=== PATIENT | male | born 1970 | race Caucasian/White ===

== ENCOUNTER 2020-06-09 08:32 | Outpatient (CLI) | payer BC, SELFPAY | END 2020-06-09 08:33 | disposition home or self-care (01) | LOC: ANHCOVIDVC 08:32 | DX: Z23 Encounter for immunization (principal) | CPT/HCPCS: 0001A; 91300 ==

== ENCOUNTER 2020-06-30 08:29 | Outpatient (CLI) | payer BC, SELFPAY | END 2020-06-30 08:30 | disposition home or self-care (01) | LOC: ANHCOVIDVC 08:29 | DX: Z23 Encounter for immunization (principal) | CPT/HCPCS: 0002A; 91300 ==

== ENCOUNTER 2021-04-12 00:23 | Day surgery (SDC) | payer BC, SELFPAY ==
[2021-03-30 12:57] VITALS: BMI 25.8
[2021-04-12 07:44] VITALS: BP 129/83; PULSE 91; RESP 20; TEMP 36.7; O2SAT 97; BMI 25.4
[2021-04-12] MEDS: LACTATED RINGERS 1,000 ML 150 ML IV CONT (07:51)
--- NOTE | 2021-04-12 08:28 | P.PNAN_ITS ---
Anes - Initial Pre Proc Eval Procedure: Operation Date: 04/12/21 08:30 Proposed Procedures p Colonoscopy With Internal Hemorrhoid Banding - Avila Spangler DO Date/Time: 04/12/21 08:28 Surgeon: Avila Spangler DO Pre Op Diagnosis: grade III internal hemorrhoids, rectal bleeding Patient Data Age: 50 Gender: M Height: 1.8 m Weight: 82.6 kg Last Vital Signs Temp 98.1 F 04/12/21 07:44 Pulse 91 04/12/21 07:44 Resp 20 04/12/21 07:44 BP 129/83 04/12/21 07:44 Pulse Ox 97 04/12/21 07:44 Allergies Allergy/AdvReac Type Severity Reaction Status Date / Time No Known Allergies Allergy Verified 04/12/21 07:43 Home Medications Medication Instructions Recorded Confirmed Type No Home Medications 03/26/21 04/02/21 History Patient hx anesthesia problems: none Family hx anesthesia problems: none Results Review: All pre-operative results and documents have been reviewed as part of the pre-operative evaluation. 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 Informed Consent: The patient's anesthetic plan and its attendant risks and benefits were discussed with the patient/family/POA. Questions were solicited and answers provided to the satisfaction of the patient/family/POA.
--- NOTE | 2021-04-12 08:37 | WPDHPUPDATE1 ---
History and Physical Update Update Date/Time: 04/12/21 08:37 History and Physical has been reviewed, including an updated exam of the patient. There are NO changes in the patient's condition. Risks, benefits, and alternatives have been discussed and questions answered. Patient agrees to proceed with procedure.
[2021-04-12 09:13] VITALS: BP 109/81; PULSE 79; RESP 23; O2SAT 95
--- NOTE | 2021-04-12 09:21 | W.PM.PROC2 ---
Procedure Note - Detailed Date of Procedure 04/12/21 Pre-op Diagnosis grade III internal hemorrhoids, rectal bleeding Post-op Diagnosis same Procedure Performed internal hemorrhoid rubber banding Surgeon Avila Spangler, DO Anesthesia MAC Indications this is a 50-year-old man who presented with rectal bleeding. He was having frequent episodes of blood dripping into the toilet after bowel movements. He has never had a colonoscopy before. Decision was made to proceed with colonoscopy and internal hemorrhoid rubber banding. Findings After completing colonoscopy, I then proceeded with internal hemorrhoid rubber banding. I placed bands in the right anterior, right posterior, and left lateral locations. Hemorrhoid tissue appeared more prominent in the right posterior and left lateral regions. Description of Procedure Patient was placed in left lateral decubitus position. After completing colonoscopy, he was kept under IV sedation and anoscope was inserted. I carefully inspected the anal rectal canal. I then placed rubber bands around internal hemorrhoids located in the right anterior, right posterior, and left lateral locations. Anoscope was then removed. There was minimal bleeding. Patient was then awakened from anesthesia and transferred to recovery. Estimated Blood Loss 2 Complications No immediate complications Condition stable Disposition same day
[2021-04-12 09:23] VITALS: BP 132/87; PULSE 66; RESP 13; O2SAT 98
[2021-04-12 09:33] VITALS: BP 116/73; PULSE 75; RESP 15; O2SAT 100
== END 2021-04-12 09:43 | disposition home or self-care (01) ==
PROVIDERS: PCP Family Medicine; Visit Provider Surgery
PROC: 0DJD8ZZ Inspection of Lower Intestinal Tract, Via Natural or Artificial Opening Endoscopic (ICD-10-PCS; CPT 45378; principal; 2021-04-12 08:30)
DX: K64.8 Other hemorrhoids (principal); K62.1 Rectal polyp; K62.5 Hemorrhage of anus and rectum; K64.4 Residual hemorrhoidal skin tags; F17.210 Nicotine dependence, cigarettes, uncomplicated
CPT/HCPCS: 45385; 46255; 88305; J2704; J7120

== ENCOUNTER 2021-11-30 12:46 | Outpatient (CLI) | payer BC, SELFPAY ==
--- NOTE | 2021-11-30 13:00 | ECG_ITS ---
Measurements Intervals [place] Rate: 63 P: 43 AL: 162 QRS: 42 QRSD: 108 T: 51 QT: 372 QTc: 383 Interpretive Statements SINUS RHYTHM INCOMPLETE RIGHT BUNDLE BRANCH BLOCK BASELINE ARTIFACT- I, II, AVR BORDERLINE ECG NO PREVIOUS ECG AVAILABLE FOR COMPARISON Electronically Signed On 11-30-2021 13:36:11 CDT by Shawn Garcia D.O.
== END 2021-11-30 12:47 | disposition home or self-care (01) ==
LOC: ANHSURGERY 12:53
PROVIDERS: PCP Family Medicine; Visit Provider Surgery
DX: Z01.818 Encounter for other preprocedural examination (principal); Z72.0 Tobacco use
CPT/HCPCS: 93005

== ENCOUNTER 2021-12-05 00:46 | Day surgery (SDC) | payer BC, SELFPAY ==
[2021-11-28 12:28] VITALS: BMI 25.8
--- NOTE | 2021-11-28 12:32 | PC.NURSE ---
Report to the Outpatient Waiting Room, entrance under the green pavilion located off [facility], at time _1100_ on date _[phone]_. OR Time: _1pm_. Time changes happen often and if your time is changed the preop area will call you the afternoon before. - You and your visitor will be asked to self-screen and do not enter if you have any COVID symptoms. - Only one visitor and NO children visitors are allowed at this time. - The patient visitor is requested to leave or wait in car when not with patient due to restrictions. - A mask is required within the hospital. Patients may have clear liquids (water, carbonated beverages, clear teas, apple juice) until 3 hours prior to surgery with a maximum of 20 ounces. - No food from midnight until time of surgery Take the following medications with a SIP of water the morning of surgery: ___None Medications to discontinue per physician None Date to take last dose Please no make-up, nail arabic, hairspray, perfume, deodorant, or body powder the day of surgery. No jewelry (including any body piercings) or valuables the day of surgery, leave them at home. Please take a shower or bath the night before, or the morning of, surgery with an antibacterial soap. Wear comfortable, loose fitting clothing. - Jewelry must be removed prior to entering the operating room. Rings and piercings that are not removed may be cut off. - The hospital will not accept responsibility for valuables. - Please leave all valuables, including medications, at home the day of surgery. If you are going home after surgery, a licensed racecar driver must drive you home. - NO public transportation without another adult. - We recommend that an adult stay with you for 24 hours following discharge. - We also recommend that you do not drive, make important decision, drink alcoholic beverages, or take any drugs that were not prescribed by your health care provider for at least 24 hours after your discharge time. Follow any additional instructions given to you from your surgeon. If you or anyone in your household have experienced Covid symptoms in the past week, please notify your surgeon or the nurse liaison at the phone number below for possible testing. Telephone instructions given to _Patient___and asked if any additional questions and then verbalized understanding. Patient advised to call surgeon office or pre surgery nurse liaison [phone] if any additional questions.
--- NOTE | 2021-12-04 14:21 | P.PNAN_ITS ---
Anes - Initial Pre Proc Eval Procedure: Operation Date: 12/05/21 10:00 Proposed Procedures p Rectal Examination Under Anesthesia, Internal and External Hemorrhoidectomy - Avila Spangler DO Date/Time: 12/04/21 14:21 Surgeon: Avila Spangler DO Pre Op Diagnosis: Int & Ext Hemorrhoids Patient Data Age: 51 Gender: M Height: 1.8 m Weight: 84 kg Allergies Allergy/AdvReac Type Severity Reaction Status Date / Time No Known Allergies Allergy Verified 11/28/21 12:27 Home Medications Medication Instructions Recorded Confirmed Type No Home Medications 03/26/21 11/28/21 History Patient hx anesthesia problems: none Family hx anesthesia problems: none Results Review: All pre-operative results and documents have been reviewed as part of the pre- operative evaluation. 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 Informed Consent: The patient's anesthetic plan and its attendant risks and benefits were discussed with the patient/family/POA. Questions were solicited and answers provided to the satisfaction of the patient/family/POA.
[2021-12-05] MEDS: ACETAMINOPHEN 500 MG TABLET 1000 MG PO (08:27)
[2021-12-05] MEDS: LACTATED RINGERS 1,000 ML 30 ML IV CONT ×2 (08:28→11:11)
[2021-12-05] MEDS: KETOROLAC 15 MG/ML VIAL (*BKC) IV PUSH (08:28)
[2021-12-05 08:30] VITALS: BP 123/81; PULSE 84; RESP 16; TEMP 36.6; O2SAT 100
--- NOTE | 2021-12-05 10:03 | WPDHPUPDATE1 ---
History and Physical Update Update Date/Time: 12/05/21 10:03 History and Physical has been reviewed, including an updated exam of the patient. There are NO changes in the patient's condition. Risks, benefits, and alternatives have been discussed and questions answered. Patient agrees to proceed with procedure.
--- NOTE | 2021-12-05 10:03 | PM.IMHP ---
H&P: HPI History of Present Illness Date/Time: 12/05/21 10:03 Chief Complaint: Internal and external hemorrhoids Narrative: This is a 51-year-old man who presents with bleeding hemorrhoids. He has had rubber-band ligation performed twice in the past but still continues to have occasional bleeding. Discussions were made about continuing with rubber-band ligations or proceeding with hemorrhoidectomy and he chose to proceed with hemorrhoidectomy. Review of Systems Review of Systems: All systems reviewed & are unremarkable except as noted in HPI and below Constitutional: Constitutional: Denies chills, Denies fever(s), Denies headache(s) and Denies weight loss Eyes: Eyes: Denies change in vision ENT: Denies dizziness, Denies headache(s), Denies neck mass and Denies throat swelling Cardiovascular: Cardiovascular: Denies chest pain, Denies lightheadedness and Denies dyspnea Respiratory: Respiratory: Denies cough, Denies dyspnea and Denies wheezing Gastrointestinal: Gastrointestinal: Denies abdominal pain, Denies change in bowel habits, Denies nausea and Denies vomiting Genitourinary: Genitourinary: Denies hematuria and Denies dysuria Musculoskeletal: Musculoskeletal: Reports as per HPI Integumentary/Breasts: Skin/Breast: Reports as per HPI Neurologic: Denies dizziness and Denies headache(s) Allergic/Immunologic: Allergic/Immunologic: Denies throat swelling and Denies wheezing PMFSH Surgical History Surgical History History of ankle surgery Approximately 1994 Social History Social History Smoking packs per day: 1 Smoking cigarettes per day: 20.0 Years smoked: 20 Smoking pack-years: 20.00 Smoking status: Former smoker Tobacco type: cigarettes and e-cigarettes/vaping Smoking end date: 03/30/21 Alcohol intake: current Drinks per week: 1 Alcohol use details: Rare alcohol use Substance use: never Substance use type: does not use Living arrangements: with family 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 Spiritual care concerns: No Meds Home Medications and Allergies Home Medications Medication Instructions Recorded Confirmed Type No Home Medications 03/26/21 12/05/21 History Allergies Allergy/AdvReac Type Severity Reaction Status Date / Time No Known Allergies Allergy Verified 12/05/21 08:41 Vital Signs Vital Signs - 24 hr 12/05/21 08:30 Temperature 36.6 C Pulse Rate 84 Respiratory Rate 16 Blood Pressure 123/81 Pulse Oximetry 100 Oxygen Delivery Room Air Exam Const: General: no acute distress and alert Orientation/consciousness: patient oriented x3 HENMT: Head: normocephalic and atraumatic Ears: hearing grossly normal bilaterally Face/Nose/Sinus: Normal nares present Mouth: Yes Normal oral and palatal mucosa present Eyes: Periorbital: periorbital findings normal Sclera: sclerae normal EOM: EOMs intact bilaterally Neck: Neck: normal visual inspection, no lymphadenopathy and trachea midline Chest: Chest palpation & inspection: normal inspection of the chest Resp: Effort & Inspection: normal respiratory effort Auscultation: clear to auscultation bilaterally Cardio: Jugular venous distension: no JVD Rate: regular rate Rhythm: regular rhythm Heart sounds: S1 normal heart sound present and S2 normal heart sound present Peripheral pulses: Peripheral pulses 2+ throughout GI: Inspection: normal to inspection GI Palp: Yes Soft to palpation, No Tenderness to palpation present (GI), No Guarding due to palpation present (GI) and No Rebound tenderness present Percussion: Yes normal to percussion Auscultation: normal bowel sounds : General: Yes no CVA tenderness Back/Spine/Pelvis: Back: no CVA tenderness Neuro: General: patient oriented x3, no focal motor deficits and CN's II-XI intact bilaterally Cognition (Neuro): n
[2021-12-05] MEDS: ceFAZolin 2 GM/D5W 50 ML 2 GM/50 ML BAG IVPB (10:23)
[2021-12-05] MEDS: LIDO 1%/EPINEPHRINE 1:100,000 10 ML VIAL INFILTRATE (10:46)
--- NOTE | 2021-12-05 11:08 | W.PM.PROC2 ---
Procedure Note - Detailed Date of Procedure 12/05/21 Pre-op Diagnosis Int & Ext Hemorrhoids Post-op Diagnosis Same Procedure Performed Rectal exam under anesthesia with internal and external hemorrhoidectomy x1 column Surgeon Avila Spangler, DO Anesthesia MAC and Local (1% lidocaine with epinephrine and Exparel) Indications This is a 51-year-old man who presented with rectal bleeding and prolapsing hemorrhoids. He had a colonoscopy about 1 year ago and underwent hemorrhoid rubber-band ligation at that time. He did well for about 6 or 8 months but then started experiencing some rectal bleeding again. Another hemorrhoid banding was performed in the office but patient was still complaining of rectal bleeding. Discussions were made with the patient about treatment options and decision was made to proceed with internal and external hemorrhoidectomy. Findings Rectal exam under anesthesia was performed. Patient was found to have prolapsing internal hemorrhoids with associated external hemorrhoid tissue in the right posterior location. There was no other significant prolapsing tissue around the remainder of the rectum. Internal and external hemorrhoidectomy was performed in the right posterior location. The specimen was sent to the lab for pathology. No other abnormalities were noted. Description of Procedure Procedure as well as risks, benefits, and alternatives were discussed with the patient. Written consent was obtained and placed in chart prior to procedure. Patient was brought back to surgical suite. He was placed in prone jose-knife position on the operating table. IV sedation was administered by the anesthesia department. Time-out was done to confirm patient and procedure. His perirectal area was prepped and draped in sterile fashion using Betadine prep. Digital rectal exam was initially performed. 1% lidocaine with epinephrine was then infiltrated around the perirectal region. I then also infiltrated Exparel around the perirectal region. A Hill-Lopez anoscope was then inserted in the anal rectal canal was carefully inspected. I then inserted a Fansler anoscope and located the area of the right posterior internal hemorrhoid. A 2-0 chromic [id number] suture was placed at the apex of the hemorrhoid bundle. An elliptical incision was then made around the external hemorrhoid tissue using a 15 blade scalpel. This was then extended up to the internal hemorrhoid tissue and the hemorrhoid bundle was carefully dissected free from the sphincter muscle fibers using electrocautery. A clamp was then placed across the hemorrhoid bundle and the 2-0 chromic suture was then run distally across the hemorrhoid bundle. The clamp was then removed and the suture was pulled taut. The suture was then run with running locking suture back to the apex of the hemorrhoid bundle and the suture was tied down in place. The area was then irrigated with sterile saline. Hemostasis appeared adequate. The anoderm was then reapproximated using 3-0 chromic simple interrupted sutures. The area was inspected and no other abnormalities were noted. The Fansler anoscope was then removed and the Hill-Lopez anoscope was then reinserted in the remainder of the anal rectal canal was carefully inspected. No other significant hemorrhoid tissue was identified. Hemostasis appeared adequate. Xeroform gauze was then applied followed by fluff gauze, ABD pad, and mesh underwear. The patient was then awakened from anesthesia and transferred to recovery. Estimated Blood Loss 5 Pathology Yes (Internal and external hemorrhoid) Complications No immediate complications Condition Stable Disposition Same day [facility] Billing Surgery - Charge Forward: Surgery Billing
[2021-12-05 11:11] VITALS: BP 114/75; PULSE 84; RESP 16; O2SAT 100
[2021-12-05 11:40] VITALS: BP 118/73; PULSE 77; RESP 16; O2SAT 99
[2021-12-05 12:10] VITALS: BP 124/85; PULSE 70; RESP 16
== END 2021-12-05 12:25 | disposition home or self-care (01) ==
PROVIDERS: PCP Family Medicine; Visit Provider Surgery
PROC: (CPT 46255; principal; 2021-12-05 10:00)
DX: K64.8 Other hemorrhoids (principal); K62.5 Hemorrhage of anus and rectum; K64.1 Second degree hemorrhoids; K64.4 Residual hemorrhoidal skin tags; Z87.891 Personal history of nicotine dependence
CPT/HCPCS: 46255; 88304; 93005; A9270; C9290; J0690; J1100; J1885; J2250; J2405; J2704; J3010; J7120

== ENCOUNTER 2024-07-30 08:15 | Outpatient (CLI) | payer BC, SELFPAY ==
[2024-07-30 09:12] LABS: Basophils Absolute Auto 0.1 K/mm3 (0.0-0.1); Basophils Percent Auto 0.9 % (0.2-1.2); Eosinophils Absolute Auto 0.2 K/mm3 (0-0.3); Eosinophils Percent Auto 2.7 % (0-4.4); Hematocrit 43.5 % (42.0-52.0); Hemoglobin 14.5 g/dL (14.0-18.0); Immature Granulocyte Absolute 0.02 K/mm3 (0.00-0.031); Immature Granulocyte Percent A 0.4 % (0-0.5); Lymphocytes Absolute Auto 1.43 K/mm3 (0.9-3.2); Lymphocytes Percent Auto 25.3 % (18.3-44.2); Mean Corpuscular HGB Conc 33.3 g/dl (32-36); Mean Corpuscular Hemoglobin 30.9 pg (26-34); Mean Corpuscular Volume 92.8 fl (80-100); Mean Platelet Volume 9.4 fl (7.4-10.4); Monocytes Absolute Auto 0.6 K/mm3 (0.1-0.6); Monocytes Percent Auto 10.1 % (2.6-8.5); Neutrophils Absolute Auto 3.4 K/mm3 (1.3-6.7); Neutrophils Percent Auto 60.6 % (45.5-73.1); Platelet Count Result 269 k/mm3 (150-375); Red Blood Count 4.69 M/mm3 (4.6-6.20); Red Cell Distribution Width 12.7 % (11.5-14.5); White Blood Count 5.7 K/mm3 (4.5-10.0)
[2024-07-30 09:29] LABS: Alanine Aminotransferase 45 U/L (6-50); Albumin Level 4.5 g/dL (3.5-5.1); Alkaline Phosphatase 60 U/L (38-126); Anion Gap 6 mmol/L (4-12); Aspartate Amino Transferase 38 U/L (17-59); Bilirubin,Total 0.5 mg/dL (0.2-1.3); Blood Urea Nitrogen 14 mg/dL (9-20); Calcium 9.2 mg/dL (8.4-10.2); Carbon Dioxide 28 mmol/L (22-30); Chloride 107 mmol/L (98-107); Cholesterol 141 mg/dL (0-200); Estimated Glomerular Filt Rate > 60; Glucose 104 mg/dL (65-110); HDL Direct 28 mg/dL; Potassium 4.6 mmol/L (3.4-5.0); Sodium 141 mmol/L (137-145); Triglycerides 99 mg/dL (<150)
[2024-07-30 09:40] LABS: LDL Cholesterol Direct 85 mg/dL
[2024-07-30 10:00] LABS: Prostate Specific Antigen 0.8 ng/mL (< OR = 4.0)
[2024-07-30 10:09] LABS: Hemoglobin A1C 5.3 % (<5.7)
== END 2024-07-30 08:16 | disposition home or self-care (01) ==
PROVIDERS: PCP Family Medicine; Visit Provider Family Medicine
DX: Z00.00 Encounter for general adult medical examination without abnormal findings (principal)
CPT/HCPCS: 36415; 80053; 80061; 83036; 84153; 85025